=== PATIENT | male | born 1945 | race Caucasian/White ===

== ENCOUNTER 2018-06-09 11:53 | Emergency (ER) | payer MEDICARE ==
[~2018-06-09] VITALS: Ht 177.8 cm; Wt 74.8 kg
[2018-06-09] MEDS ORDERED: CHOLESTEROL MED (13:50)
== END 2018-06-09 14:17 | disposition home or self-care (01) ==
LOC: ER 11:53
DX: S43.035A Inferior dislocation of left humerus, initial encounter (principal); S43.015A Anterior dislocation of left humerus, initial encounter; F10.20 Alcohol dependence, uncomplicated; W01.0XXA Fall on same level from slipping, tripping and stumbling without subsequent striking against object, initial encounter; Z79.899 Other long term (current) drug therapy; Z87.891 Personal history of nicotine dependence
CPT/HCPCS: 23650; 73030; 99283-25; J7030